=== PATIENT | female | born 1970 | race Caucasian/White ===

== ENCOUNTER 2018-08-12 11:18 | Day surgery (SDC) | payer MEDICARE, OTHER ==
[2018-08-05 13:07] VITALS: BMI 29.9
[2018-08-12] MEDS ORDERED: MIDAZOLAM 2 MG/2 ML VIAL IV PRN (11:28)
[2018-08-12] MEDS ORDERED: LACTATED RINGERS 1,000 ML IV SCH (11:28)
[2018-08-12] MEDS ORDERED: ONDANSETRON 4 MG/2 ML VIAL IVP ONE (11:28)
[2018-08-12] MEDS ORDERED: DEXAMETHASONE SOD PHOSPHATE 10 MG/ML 1 ML VIAL IV ONE (11:28)
[2018-08-12] MEDS ORDERED: LIDOCAINE 1% 20 ML VIAL (10MG/ML) FOR IV START INTRADERMA PRN (11:28)
[2018-08-12 11:42] VITALS: RESP 16; TEMP 97.8
[2018-08-12] MEDS ORDERED: MIDAZOLAM 2 MG/2 ML VIAL ONE (13:13)
[2018-08-12] MEDS ORDERED: KETAMINE 10 MG/ML 20 ML VIAL ONE (13:13)
[2018-08-12] MEDS ORDERED: IV FLUID CONTINUATION 400 ML IV ONE (15:15)
[2018-08-12 16:00] VITALS: BP 133/76; PULSE 70
--- NOTE | 2018-08-13 00:12 | NM ---
EXAMINATION TYPE: NM hepatobiliary w CCK DATE OF EXAM: 08/12/2018 COMPARISON: NONE HISTORY: 47-year-old female right upper quadrant pain TECHNIQUE: After the intravenous administration of 4.79 mCi Tc 99m Mebrofenin hepatobiliary scintigra phy is performed. Immediate images post injection. FINDINGS: There is satisfactory initial accumulation of tracer by the liver. The gallbladder is visualized wit hin 14 minutes. The small bowel activity is noted within 28 minutes. At one hour CCK was administer ed, patient was injected with 1.5 mcg of Kinevac, and gallbladder ejection fraction is calculated at 77 %, in the upper limits of the normal range. Therefore there is no scintigraphic evidence of cysti c or common bile duct obstruction to suggest acute cholecystitis or gallbladder dyskinesia. IMPRESSION: 1. No scintigraphic evidence for acute/chronic cholecystitis or biliary dyskinesia. 2. Gallbladder ejection fraction is at the upper limits of the normal range (77%).
== END 2018-08-12 16:04 | disposition home or self-care (01) ==
LOC: RADNMMAIN 11:18 → EDSTATUS 13:00 → EEVIPCON 13:00 → RADNMMAIN 16:04
PROVIDERS: ATTEND Surgery
DX: K81.9 Cholecystitis, unspecified (principal); R10.11 Right upper quadrant pain; N63.20 Unspecified lump in the left breast, unspecified quadrant; F71 Moderate intellectual disabilities; I10 Essential (primary) hypertension; E78.5 Hyperlipidemia, unspecified; N60.02 Solitary cyst of left breast; K21.9 Gastro-esophageal reflux disease without esophagitis; Z79.899 Other long term (current) drug therapy; Z83.3 Family history of diabetes mellitus; Z82.3 Family history of stroke; Z82.49 Family history of ischemic heart disease and other diseases of the circulatory system; Z83.49 Family history of other endocrine, nutritional and metabolic diseases
CPT/HCPCS: 81025; 78227; A9537; J2250; J2805